=== PATIENT | male | born 1940 | race Caucasian/White ===

== ENCOUNTER 2024-06-06 10:37 | Emergency (ER) | payer MEDICARE ==
[2024-06-06] MEDS: Sodium Chloride 0.9% 1,000 ML IV SCH (11:17)
[2024-06-06 11:28] LABS: BASOPHILS ABSOLUTE AUTO 0.1 x10-3/uL (0.0-0.3); BASOPHILS PERCENT AUTO 1.3 % (0.3-3.8); EOSINOPHILS ABSOLUTE AUTO 0.3 x10-3/uL (0.0-0.6); EOSINOPHILS PERCENT AUTO 3.3 % (0.1-6.8); HEMATOCRIT 40.5 % (38.3-50.1); HEMOGLOBIN 13.7 g/dL (12.9-17.7); LYMPHOCYTES ABSOLUTE AUTO 2.5 x10-3/uL (0.5-4.5); MEAN CORPUSCULAR HEMOGLOBIN 31.4 pg (27.0-33.3); MEAN CORPUSCULAR HGB CONC 33.9 g/dL (28.7-35.3); MEAN CORPUSCULAR VOLUME 92.7 fL (80.8-98.7); MEAN PLATELET VOLUME 8.2 fL (6.7-11.0); MONOCYTES ABSOLUTE AUTO 0.6 x10-3/uL (0.0-1.2); MONOCYTES PERCENT AUTO 8.2 % (5.5-15.2); NEUTROPHILS ABSOLUTE AUTO 4.3 x10-3/uL (1.7-6.9); NEUTROPHILS PERCENT AUTO 55.2 % (40.3-71.8); PLATELET COUNT,PLT 172 x10(3)uL (117-477); RED BLOOD CELL COUNT 4.37 x10(6)uL (3.90-5.90); RED CELL DISTRIBUTION WIDTH 14.6 % (12.4-15.0); WHITE BLOOD CELL COUNT,WBC 7.9 x10-3/uL (3.2-10.1)
[2024-06-06 11:32] LABS: BLOOD UREA NITROGEN,BUN 19 mg/dL (7-18); BUN/CREATININE RATIO 15.8 (9-20); CALCIUM 8.7 mg/dL (8.6-10.2); CARBON DIOXIDE,CO2 27 mmol/L (21-32); CHLORIDE,CL 106 mmol/L (100-110); CREATININE 1.2 mg/dL (0.70-1.30); ESTIMATED GFR 59 mL/min (>60); GLUCOSE RANDOM 112 mg/dL (80-116); POTASSIUM,K 3.9 mmol/L (3.5-5.3); SODIUM,NA 143 mmol/L (135-145)
[2024-06-06 11:51] LABS: ALANINE AMINOTRANSFERASE,ALT 34 U/L (12-36); ALBUMIN 3.5 g/dL (3.2-4.6); ALKALINE PHOSPHATASE 94 IU/L (56-112); ASPARTATE AMNIOTRANSFERASE,AST 19 IU/L (5-25); BILIRUBIN TOTAL 0.6 mg/dL (0.1-1.3); PROTEIN TOTAL,TP 7.1 g/dL (6.0-8.0)
[2024-06-06 11:53] LABS: TROPONIN I 15.2 pg/mL (4.0-60.3); TSH ULTRASENSITIVE 1.8 IU/mL (0.36-3.74)
[2024-06-06] MEDS: Sodium Chloride 0.9% 500 ML IV ONE (12:55)
== END 2024-06-06 15:04 | disposition home or self-care (01) ==
LOC: FB.ED 10:37
DX: R42 Dizziness and giddiness (principal)
CPT/HCPCS: 80053; 83735; 84443; 84484; 85025; 93005; 96360; 96361; 99284; J7030